=== PATIENT | male | born 1950 | race Caucasian/White ===

== ENCOUNTER 2018-09-22 15:47 | Inpatient (IN) ==
[2018-09-22] MEDS ORDERED: AFRIN NASAL SPRAY NAS ONE (16:12)
--- NOTE | 2018-09-22 16:25 | Diag Imaging Result Doc PS360 ---
EXAM: CHEST-2 VIEWS - 09/22/2018 HISTORY: hemoptysis TECHNIQUE: Chest two views COMPARISON: None. FINDINGS: Heart size is normal. There is some tortuosity of the thoracic aorta. There are COPD changes. There is consolidation at the right middle lobe. The remainder of the lungs appear to be clear of acute changes. There is no pleural effusion or pneumothorax identified. IMPRESSION: COPD. Consolidation at right middle lobe, suspicious for pneumonia. Follow-up after treatment to ensure resolution or correlation with CT thorax is recommended to exclude other underlying lesion. Electronically signed by Hamzah Hilliard 09/22/2018 4:23 PM
[2018-09-22] MEDS ORDERED: ROCEPHIN 1 GM in NS 50 ML IV ONE (16:30)
[2018-09-22 16:38] LABS: BASO# 0.04 X1000 (0.0-0.2); BASO% 0.5 % (0.0-0.8); EOS# 0.12 X1000 (0.0-0.7); EOS% 1.5 % (0.0-10.0); HEMATOCRIT 41.8 % (42.0-52.0); HEMOGLOBIN 14.6 g/dL (14.0-18.0); IMM GRAN# 0.01 X1000 (0.0-0.04); IMM GRAN% 0.1 % (0.0-0.5); LYMPH% 28.3 % (20.5-51.1); MCH 31.5 PG (27-31); MCHC 34.9 g/dL (33-37); MCV 90.1 FL (81-99); MONO# 0.78 X1000 (0.11-0.59); MPV 9.9 FL (7.4-10.4); NEUT# 4.62 X1000 (1.4-6.5); NEUT% 59.6 % (42.2-75.2); PLT 264 X1000 (130-400); RBC 4.64 XMIL (4.7-6.1); RDW 14.1 % (11.5-14.5); WBC 7.77 X1000 (4.8-10.8)
[2018-09-22 16:59] LABS: ALBUMIN 3.9 g/dL (3.5-5.0); CALCIUM 9.8 mg/dL (8.8-10.2); CREATININE 1.2 mg/dL (0.7-1.2); POTASSIUM 4.2 mmol/L (3.5-5.1); TOTAL BILIRUBIN 0.4 mg/dL (0.20-1.00); TOTAL PROTEIN 7.6 g/dL (6.3-8.3)
[2018-09-22] MEDS ORDERED: ZITHROMAX 500 MG/NS 500 MG/250 ML IVPB IV SCH (17:00)
--- NOTE | 2018-09-22 17:17 | PROVIDER DOCUMENTATION ---
This chart was entered by Lorelei Meek Scribe, acting as scribe for Duncan Sandoval CRNP. HPI-EENT General - General Chief Complaint: General Adult Stated Complaint: nose bleed Time Seen by Provider: 09/22/18 15:54 Source: patient Allergies/Adverse Reactions: Patient Allergies Allergy/AdvReac Type Severity Reaction Status Date / Time No Known Allergies Allergy Verified 09/22/18 16:58 Home Medications: Home Medication List Medication Instructions Recorded Confirmed Last Taken Type NK [No Home Medications] 09/22/18 09/22/18 Unknown History - History of Present Illness-EENT General Nature of Presenting Problem: Patient is a 68 year old male who presents to the ED via EMS with a nose bleed. Patient states he started coughing up blood this morning. Patient states the nose bleed started this morning as well. Patient denies vomiting. EENT Location: reports: nose Quality of Pain: reports: none Severity: reports: mild Onset/Duration: reports: this morning Timing: reports: still present Prearrival Treatment: Initiated no prearrival treatment Associated Symptoms: reports: other (coughing up blood) Locality of Occurance: Home Similar Symptoms Previously?: No Recently seen or treated by another doctor?: No - Nose Nose Problem Symptoms: nosebleed Review of Systems - Adult - REVIEW OF SYSTEMS - ADULT Constitutional: reports: no symptoms reported Eyes: reports: no symptoms reported Ears, Nose, Mouth & Throat: reports: epistaxis. denies: ear pain, sinus problem , throat pain Cardiovascular: reports: no symptoms reported Respiratory: reports: hemoptysis. denies: shortness of breath, wheezing Gastrointestinal: reports: no symptoms reported Genitourinary: reports: no symptoms reported Musculoskeletal: reports: no symptoms reported Integumentary: reports: no symptoms reported Neurological: reports: no symptoms reported Psychiatric: reports: no symptoms reported Endocrine: reports: no symptoms reported Hematologic/Lymphatic: reports: no symptoms reported Allergic/Immunologic: reports: no symptoms reported All Other Systems: Reviewed and Negative Past History - Adult - PAST MEDICAL HISTORY-ADULT Review of Records: reports: Nursing Assessment Review, Medications Reviewed, Social history reviewed & non-contributory. Major Childhood Illnesses: reports: denies history Cardiovascular: reports: denies history Respiratory: reports: denies history Gastrointestinal: reports: denies history Obstetrical/Gynecological: reports: denies history Genitourinary: reports: denies history Musculoskeletal: reports: denies history Neurological: reports: denies history Endocrine/Immune: reports: denies history Other Conditions: reports: denies history - PRIOR SURGERIES/PROCEDURES Surgical/Procedure History: reports: other (lung) - IMMUNIZATION STATUS Childhood Immunizations: See Nurse Assessment Flu Vaccine: See Nurse Assessment - FAMILY HISTORY Family History: reviewed, not pertinent - SOCIAL HISTORY Smoking: cigarettes, greater than 1 pack/day Provider spent 3-5 mins advising pt. on dangers of tobacco.: Discussed manners to quit use, and f/u contacts for add'l counseling. Substance Use: denies Living Situation: family Physical Exam- EENT - Physical Exam EENT Initial Vital Signs Reviewed: Yes General Appearance: alert, no apparent distress Nasal Exam: active bleeding (to bilateral nares) Throat Exam: normal mouth inspection, pharynx normal Neck: normal inspection Respiratory: chest non-tender, lungs clear, normal breath sounds Cardiovascular: normal peripheral pulses, regular rate, rhythm Integumentary: normal color, normal turgor, warm/dry Neurologic: grossly normal Psych/Mental Status: normal mood/affect, oriented x 3 Progress - PLAN OF CARE/RESULTS Progress/Plan/Lab Results: Vital Signs - 8 hr 09/22/18 15:56 09/22/18 17:06 Temperature 98 F Pulse Rate 72 64 Respiratory Rate 18 20 Blood Pressure 169/96 164/98 O2 Sat by Pulse Oximetry 97 96 Laboratory Results - last 24 hr 09/22/18 09/22/18 09/22/18 16:30 16:30 16:40 WBC 7.77 RBC 4.64 L Hgb 14.6 Hct 41.8 L MCV 90.1 MCH 31.5 H MCHC 34.9 RDW Std Deviation 14.1 Plt Count 264 MPV 9.9 Immature Gran % (Auto) 0.1 Neut % (Auto) 59.6 Lymph % (Auto) 28.3 Brewster % (Auto) 10.0 H Eos % (Auto) 1.5 Baso % (Auto) 0.5 Immature Gran # (Auto) 0.01 Neut # (Auto) 4.62 Lymph # (Auto) 2.20 Brewster # (Auto) 0.78 H Eos # (Auto) 0.12 Baso # (Auto) 0.04 Sodium 140 Potassium 4.2 Chloride 102 Carbon Dioxide 26 Anion Gap 12 BUN 11 Creatinine 1.2 Estimated GFR/1.73 m2 60 BUN/Creatinine Ratio 9 Glucose 88 Calculated Osmolality 278 Calcium 9.8 Total Bilirubin 0.40 AST 19 ALT 10 Alkaline Phosphatase 72 Total Protein 7.6 Albumin 3.9 Globulin 4.0 Albumin/Globulin Ratio 1.0 Plasma Lactate 0.8 Orders Category Date Time Status Saline Loc NOW Care 09/22/18 16:43 Active CHEST-2 VIEWS [RAD] Stat Exams 09/22/18 15:59 Completed BLOOD CULTURE [BLDCUL] Stat Lab 09/22/18 16:44 Ordered CBC WITH DIFF [HEME] Stat Lab 09/22/18 16:30 Completed COMPREHENSIVE METABOLIC PANEL [CHEM] Stat Lab 09/22/18 16:30 Completed LACTATE, PLASMA [CHEM] Stat Lab 09/22/18 16:40 Completed PROTIME WITH INR [COAG] Stat Lab 09/22/18 16:30 Received PTT [COAG] Stat Lab 09/22/18 16:30 Received SPUTUM CULTURE WITH GRAM STAIN [RM] Routine Lab 09/22/18 16:59 Ordered Azithromycin 500 mg/Ns [Zithromax 500 mg/Ns] Med 09/22/18 17:00 Active 500 mg in 250 ml IV Q24H CefTRIAXONE [Rocephin] 1 gm Med 09/22/18 16:30 Discontinued 0.9% Sodium Chloride Inj [Ns] 50 ml IV NOW Oxymetazoline Nasal Peebles [Afrin Nasal Peebles] Med 09/22/18 16:12 Discontinued 1 ml JOLENE NOW ONE Result Diagrams: 09/22/18 16:30 09/22/18 16:30 - REASSESSMENT Reassessment #1 Time Reassessed: 16:32 (discussed CXR with Dr Rivero, who advises admission. Additional orders placed) Reassessment #2 Time Reassessed: 16:36 (Reviewed CXR with pt and possible admission.) - XRAY 1 XRAY: Bilateral XRAY Study: Chest Impression: Abnormal (Heart size is normal. There is some tortuosity of the thoracic aorta. There are COPD changes. There is consolidation at the right middle lobe. The remainder of the lungs appear to be clear of acute changes. There is no pleural effusion or pneumothorax identified. IMPRESSION: COPD. Consolidation at right middle lobe, suspicious for pneumonia. Follow-up after treatment to ensure resolution or correlation with CT thorax is recommended to exclude other underlying lesion. Electronically signed by Hamzah Hilliard 09/22/2018 4:23 PM) - CONSULTS/PCP/HOSPITALIST Notification #1 *Consult/PCP/Hospitalist*: Dr Christianson, hospitalist Time Discussed: 17:16 (possible admission for PNA) Consult Disposition: Will see in ED, Admit Departure - Departure Date of Disposition Decision: 09/22/18 Time of Disposition Decision: 17:16 DIAGNOSIS: Pneumonia Qualifiers: Pneumonia type: due to unspecified organism Laterality: right Lung location: middle lobe of lung Qualified Code(s): J18.1 - Lobar pneumonia, unspecified organism Disposition: ADMITTED INPATIENT 09 Certified Medical Emergency: Emergent Condition: Fair Referrals and Follow-Ups: None,PCP [Primary Care Provider] - - Critical Care Note This patient required my direct & personal management of CC.: No Attestation - Physician/ LARA Attestation Patient care was provided by Advanced Practice Provider:: Yes Advanced Practice Provider:: Duncan Sandoval Advanced Practice Provider documentation review:: The Mid-level provider documentation, treatment plan and medical decision making was reviewed by the physician who agrees with all treatment and medical decision making by the MLP. The physician spent face to face time with patient:: No Advanced Practice Provider documentation review:: Supervising physician onsite and consulted in the evaluation and care of this patient. The physician did not have a face to face encounter with the patient. This chart was documented by the indicated scribe, (Lorelei Meek Scribe) and accurately reflects the services I performed and decisions made by me, Duncan Sandoval, RODRIGUEZ, as attested by the provider's signature.
[2018-09-22 17:19] LABS: INR 0.93; PROTIME 12.9 Seconds (11.0-16.0)
[2018-09-22 17:20] LABS: PTT 30.3 Seconds (22.3-41.8)
[2018-09-22] MEDS ORDERED: PRINIVIL PO ONE (17:59)
--- NOTE | 2018-09-22 21:44 | Diag Imaging Result Doc PS360 ---
EXAM: CT THORAX W/CONTRAST 09/22/2018 HISTORY: hemoptosis TECHNIQUE: This exam was performed using automated exposure control, adjustment of mA or kV according to patient size, and/or use of iterative reconstruction technique. COMMENT: There are atherosclerotic changes present in the thoracic aorta. There is no evidence of dissection. There is a cyst arising from the upper pole of the right kidney. There is an apparent mass arising from the lateral lobe of the left adrenal gland measuring 3.2 x 2.6 cm. This has a fairly low CT density of 17 Hounsfield units. There are no abnormal fluid collections. There is a right paratracheal node measuring 16 mm in diameter. There are patchy alveolar opacities in the right middle lobe and to a lesser extent in the right lower lobe. There is COPD with subpleural blebs bilaterally. There is a somewhat spiculated nodule present in the right upper lobe on image 34. This measures at least 12 mm in diameter. There is stranding from the nodule to the posterior lateral pleural surface. There is an additional small nodule on image 20 in the right apex measuring less than 7 mm. There are marked bullous changes in both apices. There is a pleural-based nodule in the left upper lobe on image 24 measuring less than 7 mm in diameter. There are no previous studies available for comparison. There are some spondylotic changes in the thoracic spine. No evidence of acute bony abnormality is present. IMPRESSION: Right middle and lower lobe pneumonia. Pulmonary nodules as described. Comparison with previous studies if available would be helpful in this regard. Follow-up following treatment may be desirable. Electronically signed by Brandon Armstrong 09/22/2018 9:41 PM
[2018-09-23 07:09] LABS: BASO# 0.05 X1000 (0.0-0.2); BASO% 0.6 % (0.0-0.8); EOS# 0.16 X1000 (0.0-0.7); EOS% 1.8 % (0.0-10.0); HEMATOCRIT 40.9 % (42.0-52.0); HEMOGLOBIN 13.8 g/dL (14.0-18.0); IMM GRAN# 0.02 X1000 (0.0-0.04); IMM GRAN% 0.2 % (0.0-0.5); LYMPH# 2.38 X1000 (1.2-3.4); LYMPH% 26.5 % (20.5-51.1); MCHC 33.7 g/dL (33-37); MCV 91.9 FL (81-99); MONO# 1.12 X1000 (0.11-0.59); MONO% 12.5 % (1.7-9.3); MPV 10.4 FL (7.4-10.4); NEUT# 5.25 X1000 (1.4-6.5); NEUT% 58.4 % (42.2-75.2); PLT 260 X1000 (130-400); RBC 4.45 XMIL (4.7-6.1); RDW 13.9 % (11.5-14.5); WBC 8.98 X1000 (4.8-10.8)
[2018-09-23 07:26] LABS: AGAP 12; BUN 12 mg/dL (8-22); CALCIUM 8.9 mg/dL (8.8-10.2); CHLORIDE 103 mmol/L (98-107); COSMO 277; ESTIMATED GFR > 60; GLUCOSE 89 mg/dL (70-104); POTASSIUM 4.7 mmol/L (3.5-5.1); SODIUM 139 mmol/L (136-145); TCO2 24 mmol/L (25-35)
[2018-09-23] MEDS ORDERED: ZITHROMAX PO SCH (09:00)
[2018-09-23] MEDS: PRINIVIL PO SCH (09:47)
[2018-09-23] MEDS ORDERED: VANCOMYCIN IV PER PHARMACY MISC SCH (10:15)
[2018-09-23] MEDS ORDERED: VANCOMYCIN 1,500 MG in NS 250 ML IV ONE (12:00)
[2018-09-23] MEDS: ZOSYN 3.375 GM in NS 50 ML IV SCH ×2 (13:16→18:46)
--- NOTE | 2018-09-23 13:30 | Diag Imaging Result Doc PS360 ---
CT ABD/PELVIS W/PO AND IV CON - 09/23/2018 INDICATION: adrenl mass COMPARISON: Chest CT 09/22/2018 FINDINGS: There is a left adrenal gland mass measuring 3.4 x 1.9 cm. This is of generally low-density with some heterogeneous enhancement. This is indeterminate. There are bilateral benign renal cysts. No bowel obstruction or inflammation. There is severe diverticulosis of the sigmoid colon. There is heterogeneous nodular enhancement of the anterior prostate which projects into the urinary bladder. Rectum is normal. There are moderate degenerative changes of the spine. No acute or suspicious bony lesion. IMPRESSION: 1. Suspicious prostate gland mass that projects into the urinary bladder. Further investigation recommended. 2. Indeterminate adrenal gland mass of low suspicion. This exam was performed using automated exposure control, adjustment of mA or kV according to patient size, and/or use of iterative reconstruction technique Electronically signed by Cornelio Joseph 09/23/2018 1:27 PM
[2018-09-23] MEDS ORDERED: ROCEPHIN 1 GM in NS 50 ML IV SCH (18:00)
[2018-09-24] MEDS: ZOSYN 3.375 GM in NS 50 ML IV SCH ×4 (01:24→21:20)
--- NOTE | 2018-09-24 02:34 | HISTORY AND PHYSICAL ---
CHIEF COMPLAINT: Nosebleed. HISTORY OF PRESENT ILLNESS: Patient is a 68-year-old male who presented to the emergency department initially with a nosebleed. Stated he was coughing up blood. States this has happened in the past but not this severe. Denies any fevers or chills. Notes that he has had a cough for the past couple weeks, nonproductive. States that he has a history of high blood pressure but he has not been to a physician in quite some time. ALLERGIES: No known drug allergies. MEDICATIONS: None. PAST MEDICAL HISTORY: Hypertension. SURGERY: Patient notes that he has had lung surgery in the past. REVIEW OF SYSTEMS: As noted above. Patient essentially denies any cough or congestion prior to a few weeks ago. States he has had cough off and on since then. He has had nosebleeds off and on. Denies any bleeding or bruising otherwise. Denies any shortness of breath, wheezing, chest pain, palpitation. Denies fevers, chills. Denies headaches, blurred vision. Denies focalized numbness, tingling or weakness. Denies dysuria, urinary frequency, urgency, constipation, melena, hematochezia. FAMILY HISTORY: Noncontributory. SOCIAL HISTORY: Patient has an extensive history of smoking greater than a pack a day. Denies any alcohol use. Denies other substance use. FAMILY HISTORY: Noncontributory. PHYSICAL EXAMINATION: VITAL SIGNS: Temperature 98 degrees, pulse 72, respiratory 18, BP 169/96, saturation 97% on room air. GENERAL: Patient is awake, alert. Currently, he is in no respiratory distress. He is pleasant to talk with. He is sitting in the bed. HEENT: Normocephalic. NECK: Supple. CARDIOVASCULAR: Regular rate. CHEST: Positive crackles in the bases. No rhonchi. No wheezing. Minimally labored. ABDOMEN: Soft, nondistended. EXTREMITIES: Moves all extremities. LABS: WBC 7, hemoglobin and hematocrit 14 and 41. CMP normal. Plasma lactate 0.7. Chest x-ray is suspicious for right middle lobe pneumonia. ASSESSMENT: 1. Right lower lobe pneumonia. 2. Epistaxis. The patient has not had any bleeding while he has been in the ER thus far. 3. Hypertension. 4. Chronic tobacco abuse. 5. Medical noncompliance. PLAN: We will admit patient to the hospital, IV fluids, antibiotics, breathing treatments. Discussed with patient the importance of stopping smoking. ADDENDUM: Prior to patient leaving the ER, he apparently after I had seen had an episode of hemoptysis. This does not appear, according to staff, to actually be epistaxis. He had significant amount of bleeding. Thankfully his hemoglobin and hematocrit did not drop. The ER doctor attempted to transfer him to [facility], [facility] and [facility] in that order. Unfortunately, all of these places were on diversion. At this point, we will transfer him to [facility]. Thankfully, his hemoglobin and hematocrit are stable and we will follow. cc: Chalino Leonard MD
[2018-09-24 07:15] LABS: HEMATOCRIT 37.8 % (42.0-52.0); HEMOGLOBIN 12.6 g/dL (14.0-18.0); MCH 31.1 PG (27-31); MCHC 33.3 g/dL (33-37); MCV 93.3 FL (81-99); MPV 10.6 FL (7.4-10.4); RBC 4.05 XMIL (4.7-6.1); RDW 14.1 % (11.5-14.5); WBC 8.26 X1000 (4.8-10.8)
[2018-09-24 07:30] LABS: CALCIUM 8.8 mg/dL (8.8-10.2); CREATININE 1.3 mg/dL (0.7-1.2); POTASSIUM 4.7 mmol/L (3.5-5.1)
[2018-09-24] MEDS: PRINIVIL PO SCH (09:29)
[2018-09-24] MEDS: PROTONIX IV SCH (11:55)
[2018-09-24] MEDS: NICODERM PATCH TD SCH (11:55)
[2018-09-24] MEDS: ZYVOX 600 MG/D5W 600 MG/300 ML IVPB IV SCH (11:56)
[2018-09-24] MEDS ORDERED: VANCOMYCIN 1,300 MG in NS 250 ML IV SCH (12:00)
--- NOTE | 2018-09-24 15:44 | PROGRESS NOTE ---
DATE: 09/24/2018 SUBJECTIVE: This patient is feeling better today. She is still coughing up some blood, but at this time it was dark and a small amount, maybe teaspoon, and that happened 2 hours ago. He did not have any epistaxis during the night. He has been placed on antibiotics. I will stop the vancomycin because of his mild acute kidney injury. I will start him on Zyvox. Continue with Zosyn. Since his blood pressure has been borderline low in the 90, I will stop the lisinopril as well and I will monitor. I will use a nicotine patch and pantoprazole as well. OBJECTIVE: Vital Signs: Temperature 97.7 degrees, pulse 54, respiratory rate 18, blood pressure 102/60, oxygen saturation 94% on room air. HEENT: Head normocephalic. No trauma. PERRLA. Neck: Supple. No JVD. No masses. Central trachea. Chest: Decreased breath sounds globally with prolonged expiratory phase. Right mid thoracic area and lower thoracic area rhonchi. No wheezing. Abdomen: Soft, nontender, nondistended. No hepatosplenomegaly. Extremities: No edema. No clubbing. No cyanosis. Neurological examination: The patient is alert and oriented x3. No focal deficits. LABORATORY: WBC 8.2, hemoglobin 12.6, hematocrit 37.8, platelets 218. Sodium 141, potassium 4.7, chloride 106, bicarbonate 24. BUN 19, creatinine 1.3, glucose 89, calcium 8.8. ASSESSMENT AND PLAN: 1. Right middle and lower lobe pneumonia, continue with antibiotics. I will stop the vancomycin due to his mild acute kidney injury. I am not quite sure if this is his baseline, though; I do not have previous records. I will avoid nephrotoxic medications, I will stop also the lisinopril. 2. Epistaxis. No epistaxis during the night. A couple hours ago, he started coughing and some phlegm came up with some dark blood. 3. Hypertension. Actually this patient is borderline hypotension. I will stop the lisinopril and I will monitor. 4. Chronic tobacco use and abuse. This patient has been highly advised against tobacco use. I will continue with daily cessation education. I will put this patient on a nicotine patch. 5. Medical noncompliance. We discussed about taking the medications as prescribed. 6. Pulmonary nodules and mass arising from the lateral lobe of the left adrenal gland measuring 3.2 x 2.6 cm, aware. I believe Oncology Department has been consulted. We will wait for recommendations. 7. Suspicious prostate gland mass that projects into the urinary bladder. I discussed this with the patient. Likely, he will need to see a urologist as an outpatient. cc: Giuliano Rojas MD
--- NOTE | 2018-09-24 17:43 | Diag Imaging Result Doc PS360 ---
CHEST-2 VIEWS - 09/24/2018 INDICATION: hemoptysis COMPARISON: 09/22/2018 FINDINGS: Stable hyperexpanded lungs compatible with COPD. Stable significant right middle lobe infiltrate or atelectasis. No new infiltrates. No pneumothorax or significant pleural effusion. Heart size is top normal. IMPRESSION: No change from prior. Electronically signed by Cornelio Joseph 09/24/2018 5:41 PM
[2018-09-24] MEDS ORDERED: VANCOMYCIN 1 GM/NS 1 GM/250 ML IVPB IV SCH (20:00)
[2018-09-24 20:36] LABS: URINE SOURCE CLEAN CATCH
[2018-09-24 20:42] LABS: BILIRUBIN URINE NEGATIVE (NEGATIVE); BLOOD URINE NEGATIVE (NEGATIVE); COLOR YELLOW; GLUCOSE URINE NEGATIVE (NEGATIVE); KETONE URINE NEGATIVE (NEGATIVE); LEUKOCYTES URINE NEGATIVE (NEGATIVE); NITRITE URINE NEGATIVE (NEGATIVE); PROTEIN URINE NEGATIVE (NEGATIVE); SP GRAVITY URINE 1.002; TURBIDITY URINE CLEAR (CLEAR); UROBILINOGEN URINE NORMAL (NORMAL)
[2018-09-24 20:44] LABS: UR EPITHELIAL CELLS <10 /HPF (<10); URINE BACTERIA NEGATIVE /HPF; URINE RBC <10 /HPF (<10); URINE WBC <10 /HPF (<10)
[2018-09-25] MEDS: ZYVOX 600 MG/D5W 600 MG/300 ML IVPB IV SCH ×3 (00:02→22:52)
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
[2018-09-25] MEDS: ZOSYN 3.375 GM in NS 50 ML IV SCH ×4 (03:04→20:29)
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
[2018-09-25 07:17] LABS: HEMATOCRIT 37.7 % (42.0-52.0); HEMOGLOBIN 12.7 g/dL (14.0-18.0); MCH 31.4 PG (27-31); MCHC 33.7 g/dL (33-37); MCV 93.1 FL (81-99); MPV 10.4 FL (7.4-10.4); RBC 4.05 XMIL (4.7-6.1); RDW 13.9 % (11.5-14.5); WBC 9.32 X1000 (4.8-10.8)
[2018-09-25 07:45] LABS: CALCIUM 8.1 mg/dL (8.8-10.2); CREATININE 1.2 mg/dL (0.7-1.2); POTASSIUM 4.7 mmol/L (3.5-5.1)
[2018-09-25] MEDS ORDERED: TYLENOL PO PRN (07:52)
[2018-09-25] MEDS: NICODERM PATCH TD SCH (08:35)
[2018-09-25] MEDS ORDERED: PEPTO-BISMOL CHEW TAB PO PRN (10:41)
--- NOTE | 2018-09-25 11:27 | PROGRESS NOTE ---
DATE: 09/25/2018 SUBJECTIVE: No acute events overnight. This patient is tolerating food. Blood pressure has been borderline low sometimes. Oxygen saturation has been good on room air. OBJECTIVE: Vital Signs: Temperature 98.4 degrees, pulse 88, respiratory rate 18, blood pressure 95/65, oxygen saturation 97% on room air. HEENT: Head normocephalic. No trauma. PERRLA. Neck: Supple. No JVD. No masses. Central trachea. Chest: Decreased breath sounds globally with prolonged expiratory phase, rhonchi at the right base. No wheezing. Abdomen: Soft, nontender, nondistended. No hepatosplenomegaly. Extremities: No edema. No clubbing. No cyanosis. Decreased muscle mass. Neurological: The patient is alert and oriented x3. No focal deficits. LABORATORY: WBC 9.3, hemoglobin 12.7, hematocrit 37.7, platelets 233,000. Sodium 139, potassium 4.7, chloride 103, bicarbonate 22, BUN 16, creatinine 1.2, glucose 100, calcium 8.1, magnesium 2. ASSESSMENT AND PLAN: 1. Right middle and lower lobe pneumonia. Continue with antibiotics. WBC is normal. 2. Epistaxis. This is getting better. It looks like he is going to get a bronchoscopy done tomorrow. We will follow Pulmonary recommendations. 3. Hypertension. Actually, the blood pressure has been borderline low. I will stop the lisinopril completely and I will monitor. 4. Chronic tobacco use and abuse. This patient has been highly advised against tobacco use. I will continue with daily cessation education. I will continue with the nicotine patch. 5. Medical noncompliance. We discussed about taking his medications as prescribed. 6. Pulmonary nodules and mass arising from the lateral lobe of the left adrenal gland measuring 3.2 x 2.6 cm, aware. Oncology Department has been consulted. We will wait for their recommendations. 7. Suspicious prostate gland mass that projects into the urinary bladder. I discussed this with the patient, and I have requested an evaluation by Urology Department. cc: Giuliano Rojas MD
[2018-09-25] MEDS: PROTONIX IV SCH (11:33)
--- NOTE | 2018-09-25 18:10 | PULMONOLOGY PROGRESS NOTE ---
DATE: 09/25/2018 SUBJECTIVE: Patient is awake, alert, and conversant. He reports Dr. Darnell evaluated him earlier and will consider cystoscopy on Wednesday or Wednesday. The patient reports he has a cough with brown sputum. He has not seen any active/bright red blood. OBJECTIVE: Vital Signs: The patient has been afebrile for the last 24 hours. Blood pressure 112/73, heart rate 75, respiratory rate 22, oxygen saturation 99% on room air. HEENT: Pupils are equal and reactive. Oropharynx is clear. Neck: Is supple. Chest: Reveals crackles right anterior base. Cardiac: S1-S2. Abdomen: Soft without hepatosplenomegaly. Extremities: Without edema. LABORATORIES: White blood count 9.32, hemoglobin 12.7, platelet count 233,000. Sodium 139, potassium 4.7, chloride 103, bicarbonate 22, BUN 19, creatinine 1.2. IMPRESSION: 68-year-old with massive hemoptysis, nonspecific mediastinal adenopathy, nonspecific pulmonary nodules, adrenal gland which is of low suspicion according to the radiologist, and a prostate mass extending into the bladder. RECOMMENDATIONS: 1. Proceed with bronchoscopy tomorrow morning. 2. Anticipate need for an outpatient PET scan. 3. Cystoscopy planned as outlined above. cc: Ed Machado MD
[2018-09-26] MEDS: ZOSYN 3.375 GM in NS 50 ML IV SCH ×4 (03:15→22:07)
[2018-09-26 07:23] LABS: CALCIUM 8.8 mg/dL (8.8-10.2); CREATININE 1.4 mg/dL (0.7-1.2); POTASSIUM 4.8 mmol/L (3.5-5.1)
[2018-09-26 07:26] LABS: HEMATOCRIT 36.7 % (42.0-52.0); HEMOGLOBIN 12.2 g/dL (14.0-18.0); MCH 31.3 PG (27-31); MCHC 33.2 g/dL (33-37); MCV 94.1 FL (81-99); RBC 3.9 XMIL (4.7-6.1); RDW 13.8 % (11.5-14.5); WBC 7.65 X1000 (4.8-10.8)
[2018-09-26] MEDS ORDERED: XYLOCAINE 2% VISCOUS ONE (08:13)
[2018-09-26] MEDS ORDERED: EPINEPHRINE ONE (08:13)
[2018-09-26] MEDS ORDERED: XYLOCAINE 1% ONE (08:14)
[2018-09-26] MEDS ORDERED: SODIUM CHLORIDE 0.9% 20 ML ONE (08:14)
[2018-09-26] MEDS ORDERED: XYLOCAINE 2% ONE (08:14)
[2018-09-26] MEDS ORDERED: DIPRIVAN 1% ONE (08:20)
[2018-09-26] MEDS ORDERED: XYLOCAINE-MPF 2% ONE (08:20)
[2018-09-26] MEDS ORDERED: FENTANYL ONE (08:20)
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
[2018-09-26] MEDS: NICODERM PATCH TD SCH (09:43)
[2018-09-26] MEDS: D5 1/2 NS 1,000 ML IV SCH (09:47)
--- NOTE | 2018-09-26 10:03 | OPERATIVE NOTE ---
PROCEDURE DATE: PROCEDURE PERFORMED: Bronchoscopy. CLINICAL INDICATION: Hemoptysis. DESCRIPTION OF OPERATION: The patient was identified in the operating room. All questions were answered prior to the initiation of the procedure. A time-out was performed, and all were in agreement with the procedure; and the patient's name, and procedure, and reason for procedure were confirmed. Topical anesthesia was achieved with nebulized lidocaine followed by viscous lidocaine in the left nostril with 2% lidocaine instilled above the vocal cords and below the vocal cords during the procedure. Monitored anesthesia care was provided by the anesthesia services group. When topical anesthesia and sedation were achieved, bronchoscope was advanced through the left nostril to the vocal cords. The vocal cords were visualized and had normal movement. There was a small sliver of blood clot noted in the bronchial secretions. The bronchoscope was advanced into the trachea. There was very mild saber sheathing of his trachea, but no significant collapse on inhalation or exhalation. Airways to the left mainstem, left upper lobe lingula, and left lower lobe were patent without lesions. Airways to the right upper lobe revealed 4 subsegments, which were all patent and without lesions. There was a clot, which could be seen obstructing the right middle lobe. Video image was obtained. Airways to the right lower lobe were patent without lesions. A washing was performed from the trachea and again, from the right middle lobe. With washing, the clot from the right middle lobe was removed. There was minor bleeding associated with removal of the clot, and topical epinephrine was instilled. The washing continued until the segments of the right middle lobe were identified, and the subsegments were also identified. No lesions were identified to the visualization of the bronchoscope. No active bleeding could be seen at the completion of the procedure. Although it is clear that the bleeding did originate in the right middle lobe, which segment bleeding came from could not be identified. IMPRESSION: Hemoptysis with evidence of recent bleeding from the right middle lobe due to a diffuse clot in the airway to both segments of the right middle lobe. Washing clear these segments. No bleeding or tumor site was identified. If the patient were to have massive hemoptysis, it would most likely be coming from the right middle lobe. RECOMMENDATIONS: Discontinue tobacco use. Discontinue all nonsteroidal anti-inflammatory agents including aspirin, Aleve, Motrin, Goody Powders. The patient also uses Pepto-Bismol which should be eliminated because it is a salicylate product. cc: Ed Machado MD
[2018-09-26] MEDS: PROTONIX IV SCH (11:10)
[2018-09-26] MEDS: ZYVOX 600 MG/D5W 600 MG/300 ML IVPB IV SCH (11:10)
--- NOTE | 2018-09-26 14:16 | PROGRESS NOTE ---
DATE: 09/26/2018 SUBJECTIVE: No acute events overnight. He is status post bronchoscopy today that showed a diffuse clot in the airway of both segments of the right middle lobe. No evidence of bleeding or tumour were identified. He has been recommended to discontinue tobacco use, and also NSAIDs, including aspirin, Aleve, Motrin Goody's Powder, and even Pepto-Bismol. OBJECTIVE: Vital Signs: Temperature 98.1 degrees, pulse 63, respiratory rate 14, blood pressure 126/72, oxygen saturation 100% on room air. HEENT: Head normocephalic. No trauma. PERRLA. Neck: Supple. No JVD. No masses. Central trachea. Chest: Decreased breath sounds globally with prolonged expiratory phase. No wheezing. Abdomen: Soft, nontender, nondistended. No hepatosplenomegaly. Extremities: No edema. No clubbing. No cyanosis. Decreased muscle mass. Neurological: The patient is alert and oriented x3. No focal deficits. DIAGNOSTIC STUDIES: WBC 7.6, hemoglobin 12.2, hematocrit 36.7, platelets 237,000. Sodium 139, potassium 4.8, chloride 105, bicarbonate 23, BUN 15, creatinine 1.4, glucose 95, calcium 8.8. ASSESSMENT AND PLAN: 1. Right middle and lower lobe pneumonia. Continue with antibiotics. WBC is normal. 2. Epistaxis, resolved. Status post bronchoscopy today that showed a diffuse clot in the airway of both segments of the right middle lobe, but no evidence of tumour or bleeding. He has been recommended to stop the NSAIDs, aspirin, and even Pepto-Bismol. 3. Hypertension. Actually the blood pressure has been borderline low. I will continue with the same management. I have stopped all the blood pressure medication. 4. Chronic tobacco use and abuse. This patient has been highly advised against tobacco use. I will continue with daily cessation education. Continue with nicotine patch. 5. Medical noncompliance. Aware. 6. Pulmonary nodules and mass arising from the lateral lobe of the adrenal gland measuring 3.2 x 2.6. Aware. Oncology department has been consulted. We will wait for recommendations. 7. Suspicious prostate gland mass that projects into the urinary bladder. The patient has been evaluated by Urology Department, and the plan is to set up this patient for cystoscopy and bilateral retrograde pyelograms, hopefully on 09/28/2018. cc: Giuliano Rojas MD
--- NOTE | 2018-09-26 17:35 | PROGRESS NOTE ---
DATE: 09/26/2018 SUBJECTIVE: Mr. Samson underwent bronchoscopy this morning by Dr. Machado. I had originally planned to take him for cystoscopy, bilateral retrograde pyelograms, and possible transurethral resection of bladder tumor on 09/28/2018, but given the availability of the operating room schedule I attempted to take him this afternoon. However, unfortunately, he was fed lunch and hence his case was canceled. He currently denies pain. He reports he is voiding without difficulties. OBJECTIVE: Vital Signs: Temperature 98.1 degrees, pulse 64, blood pressure 101/58. General: No acute distress. Abdomen: Nontender, nondistended. Genitourinary: Bladder nontender by palpation. PERTINENT LABORATORY DATA: Hematocrit is 37 today, creatinine is 1.4. ASSESSMENT AND PLAN: 68-year-old male, who was admitted with hemoptysis but also has an either very pronounced median lobe or bladder mass by CT read as well as an adrenal mass. The patient's was present at bedside. I revisited the workup with the patient and her. We agreed for him to undergo that on 09/28/2017. PLAN: 1. No urologic intervention needed today or tomorrow. 2. We will plan for cystoscopy with bilateral retrograde pyelograms, and possible transurethral resection of bladder tumor on 09/28/2017 cc: Cheo Darnell MD
[2018-09-27] MEDS: ZYVOX 600 MG/D5W 600 MG/300 ML IVPB IV SCH ×2 (00:04→11:30)
[2018-09-27] MEDS: ZOSYN 3.375 GM in NS 50 ML IV SCH ×4 (04:27→21:00)
[2018-09-27] MEDS: D5 1/2 NS 1,000 ML IV SCH ×3 (06:57→11:25)
[2018-09-27 08:28] LABS: CALCIUM 8.2 mg/dL (8.8-10.2); CREATININE 1.2 mg/dL (0.7-1.2); POTASSIUM 4.5 mmol/L (3.5-5.1)
[2018-09-27] MEDS: NICODERM PATCH TD SCH (09:07)
[2018-09-27] MEDS: PROTONIX IV SCH (11:30)
[2018-09-27] MEDS: SODIUM CHLORIDE 0.9% INJ SCH (11:30)
--- NOTE | 2018-09-27 12:26 | PROGRESS NOTE ---
DATE: 09/27/2018 SUBJECTIVE: The patient reports feeling fine. Denies any shortness of breath. Denies any pain upon urination. No fevers or chills reported. OBJECTIVE: Vital Signs: Temperature 98.3 degrees, heart rate 63, respiratory rate 22, blood pressure 109/63, O2 saturation 100% on room air. General: This is a chronically ill-looking and malnourished, 68-year-old male lying in bed, in no acute distress. HEENT: Head is normocephalic and atraumatic. Mucous membranes dry. Neck: No JVD noted. No carotid bruits. No lymphadenopathy. Cardiovascular: S1, S2 heard. No murmurs, gallops, or rubs. Regular rate and rhythm. Respiratory: Decreased breath sounds globally with prolonged respiratory phase. Minimal wheezing in both pulmonary bases. The patient is not using any accessory muscles or having work of breathing. Abdomen: Soft, nontender to palpation, nondistended. Bowel sounds present. No organomegaly. Extremities: No clubbing, cyanosis, or edema. Muscle wasting noted. Neurological: The patient is alert and oriented x3. Moves 4 extremities. LABORATORY DATA: White cell count 7.65, hemoglobin 12.2, hematocrit 36.7, platelets 237,000. BMP unremarkable. ASSESSMENT AND PLAN: 1. Right middle and lower lobe pneumonia. The patient is on Zosyn day 4 and Zyvox day 3 of treatment. White cell count is normal. The patient is not requiring any oxygen supplementation. Will continue with the same management. 2. Pulmonary nodules and mass arising from the lateral lobe, from the adrenal gland. The patient has been evaluated by Pulmonary. Bronchoscopy has been done with no tumor found. There was a clot in the right middle lobe. At this point, we will continue monitoring this patient closely. Nonsteroidal anti-inflammatory drugs, aspirin, and Pepto-Bismol have been advised not to be taken by Pulmonary. 3. Hypertension. Blood pressure is under control, actually not requiring any medications to control blood pressure. Will continue with the same management. 4. Chronic tobacco use and abuse. The patient has being again advised to discontinue smoking. The patient is receiving nicotine patch. 5. Suspicious prostate gland mass/bladder tumor. The patient has been scheduled for Urology, Dr. Darnell, to do cystoscopy and bilateral retrograde pyelograms. The patient will be placed nothing by mouth after midnight tonight. cc: Cedric Donaldson MD
--- NOTE | 2018-09-27 18:23 | PROGRESS NOTE ---
DATE: 09/27/2018 SUBJECTIVE: Mr. Samson reports a decent night overnight. He denies changes in his urinary symptoms. He denies gross hematuria. OBJECTIVE: Vital Signs: T 98.3 degrees, P 63, BP 109/63. General: No acute distress. Abdomen: Nontender, nondistended. Back: No CVA tenderness. Bladder is nontender to palpation. PERTINENT LABS: Creatinine today is 1.2. ASSESSMENT AND PLAN: This is a 68-year-old male with a possible bladder mass as well as an adrenal mass. He was educated on the risks of the procedure including, but not limited to, bleeding, infection, injury to the bladder, injury to adjacent structures, inability to remove the entire lesion, and need for additional interventions explained. He voiced understanding and wants to proceed with cystoscopy, bilateral retrograde pyelograms, possible transurethral resection of the bladder tumor tomorrow. PLAN: 1. N.P.O. after midnight. 2. To the operating room tomorrow morning for cystoscopy, bilateral retrograde pyelograms, possible transurethral resection of the bladder tumor. cc: Cheo Darnell MD
--- NOTE | 2018-09-27 23:01 | PULMONOLOGY PROGRESS NOTE ---
DATE: 09/27/2018 SUBJECTIVE: The patient is awake, alert, and conversant. He denies hemoptysis. OBJECTIVE: Vital Signs: The patient is afebrile. Blood pressure 135/78, heart rate 70, respiration rate 20, oxygen saturation 100% on room air. HEENT: Pupils are equal and reactive. Oropharynx appears clear. Neck: Supple. Chest: Reveals good air entry bilaterally, without wheezing or rhonchi. Cardiac: S1-S2. Abdomen: Soft, and without hepatosplenomegaly. Extremities: Without edema. IMPRESSION: A 68-year-old with: 1. COPD. 2. Massive hemoptysis. 3. Nonspecific pulmonary nodules. 4. Nonspecific mediastinal adenopathy. 5. Enlarged adrenal gland, which is of low suspicion per radiologist. 6. Possible prostate mass, extending into bladder. The patient underwent bronchoscopy, which defines site of bleeding as the right middle lobe. RECOMMENDATIONS: 1. Discontinue tobacco use. 2. Discontinue aspirin use. 3. Anticipate cystoscopy 09/28/2018. 4. Recommend outpatient PET scan with follow up in my office and with Oncology. cc: Ed Machado MD
[2018-09-28] MEDS: ZYVOX 600 MG/D5W 600 MG/300 ML IVPB IV SCH ×2 (00:15→10:25)
[2018-09-28] MEDS: ZOSYN 3.375 GM in NS 50 ML IV SCH ×4 (02:30→20:44)
[2018-09-28] MEDS: D5 1/2 NS 1,000 ML IV SCH ×3 (06:00→20:43)
--- NOTE | 2018-09-28 07:40 | Diag Imaging Result Doc PS360 ---
CHEST-2 VIEWS - 09/28/2018 INDICATION: abnormal exam COMPARISON: 09/24/2018 FINDINGS: Stable advanced COPD. There has been near-complete resolution of the right middle lobe airspace opacity. No new infiltrates. No pneumothorax or pleural effusion. IMPRESSION: Significant improvement in the right middle lobe infiltrate. Electronically signed by Cornelio Joseph 09/28/2018 7:37 AM
[2018-09-28 07:45] LABS: BASO# 0.06 X1000 (0.0-0.2); BASO% 0.8 % (0.0-0.8); EOS% 3.8 % (0.0-10.0); HEMATOCRIT 37.7 % (42.0-52.0); HEMOGLOBIN 12.6 g/dL (14.0-18.0); IMM GRAN# 0.02 X1000 (0.0-0.04); IMM GRAN% 0.3 % (0.0-0.5); LYMPH# 1.85 X1000 (1.2-3.4); LYMPH% 23.2 % (20.5-51.1); MCH 31.2 PG (27-31); MCHC 33.4 g/dL (33-37); MCV 93.3 FL (81-99); MONO% 15.1 % (1.7-9.3); NEUT# 4.54 X1000 (1.4-6.5); NEUT% 56.8 % (42.2-75.2); PLT 281 X1000 (130-400); RBC 4.04 XMIL (4.7-6.1); RDW 13.8 % (11.5-14.5); WBC 7.97 X1000 (4.8-10.8)
[2018-09-28 08:14] LABS: CALCIUM 8.7 mg/dL (8.8-10.2); CREATININE 1.3 mg/dL (0.7-1.2); POTASSIUM 4.1 mmol/L (3.5-5.1)
[2018-09-28] MEDS: NICODERM PATCH TD SCH (08:55)
--- NOTE | 2018-09-28 10:21 | PROGRESS NOTE ---
DATE: 09/28/2018 SUBJECTIVE: Patient reports breathing better. Not requiring any oxygen supplementation. No pain upon urination. OBJECTIVE: Vital Signs: Temperature 97.8, heart rate 69, respiratory rate 16, blood pressure 138/77, O2 saturation 100% on room air. General examination: This is a chronically ill looking and cachectic, 68-year-old, male, lying in bed, in no acute distress. HEENT: Head is normocephalic, atraumatic. Mucous membranes dry. Neck: No JVD noted. No carotid bruits. No lymphadenopathy. No thyromegaly. Cardiovascular: S1, S2 heard. No murmurs, gallops, or rubs. Regular rate and rhythm. Respiratory: Decreased breath sounds globally with prolonged respiratory phase. Minimal wheezing is still present in both pulmonary bases. Definitely better in comparing with yesterday. Patient is not using any accessory muscles or having work of breathing. Abdomen: Soft, nontender to palpation. Nondistended. Bowel sounds present. No organomegaly. Extremities: No clubbing, cyanosis, or edema. Peripheral pulses present in both legs. Muscle wasting noted. Neurological: Patient alert and oriented x3. Moves 4 extremities. LABORATORY DATA: White cell count 7.97, hemoglobin 12.6, hematocrit 37.7, platelets 281. BMP remarkable for creatinine 1.3. ASSESSMENT AND PLAN: 1. Right middle and lower lobe pneumonia. The patient is on Zyvox day #4 and Zosyn day #5. Clinically, this patient is doing good. Not requiring any oxygen supplementation. The x-ray from today showed actually significant improvement in the right middle lobe infiltrates. Pulmonary is following this patient. We will follow recommendations. 2. Pulmonary nodule with mass arising from the lateral lobe and from the adrenal gland. Pulmonary has been consulted. Bronchoscopy did not show anything more at this point, we will follow recommendations from them. 3. Hypertension. Blood pressure is under control. Not requiring any medications to control blood pressure. We will continue with same medication. 4. Suspicious prostate gland mass/bacteremia. Patient is scheduled for today to have cystoscopy and bilateral retrograde pyelograms. Dr. Darnell is on board. We will follow recommendations. 5. Chronic tobacco use and abuse. Patient again advised to stop smoking tobacco. DISPOSITION: Depending upon results of procedure today. cc: MD ANALI Sim
[2018-09-28] MEDS ORDERED: ROBINUL ONE (12:23)
[2018-09-28] MEDS ORDERED: XYLOCAINE-MPF 2% ONE (12:23)
[2018-09-28] MEDS ORDERED: DIPRIVAN 1% ONE (12:24)
[2018-09-28] MEDS ORDERED: FENTANYL ONE (12:24)
[2018-09-28] MEDS: PROTONIX IV SCH (14:04)
[2018-09-28] MEDS ORDERED: ZOFRAN ONE (14:20)
[2018-09-28] MEDS ORDERED: DECADRON ONE (14:20)
[2018-09-28] MEDS ORDERED: SODIUM CHLORIDE 0.9% 10 ML ONE (14:30)
[2018-09-28] MEDS ORDERED: EPHEDRINE ONE (14:30)
[2018-09-28] MEDS: NORCO-7.5 ONE (15:03)
[2018-09-28] MEDS ORDERED: PYRIDIUM PO PRN (15:31)
[2018-09-28] MEDS ORDERED: NORCO-7.5 PO PRN (15:32)
--- NOTE | 2018-09-28 17:25 | Diag Imaging Result Doc PS360 ---
RETROGRADES 2 OR 3 FILMS - 09/28/2018 INDICATION: POSSIBLE BLADDER TUMOR, HEMATURIA TECHNIQUE: Bilateral ureterograms. The exam was performed by the patient's urologist. Total fluoroscopy time was eight seconds. Eight images were obtained. COMPARISON: CT from 09/23/2018 FINDINGS: The ureters and renal collecting systems are normal bilaterally. No stricture or mass. IMPRESSION: No acute disease. Electronically signed by Cornelio Joseph 09/28/2018 5:23 PM
[2018-09-29] MEDS: ZYVOX 600 MG/D5W 600 MG/300 ML IVPB IV SCH ×2 (00:17→11:42)
--- NOTE | 2018-09-29 01:27 | PULMONOLOGY PROGRESS NOTE ---
DATE: 09/28/2018 SUBJECTIVE: The patient is awake, alert, and conversant. He reports his breathing has returned to baseline. He is scheduled for a cystoscopy earlier today. OBJECTIVE: Vital Signs: The patient has been afebrile for the last 24 hours. Blood pressure 142/92, heart rate 91, respiratory rate 16, oxygen saturation 100% on room air. HEENT: Pupils are equal and reactive. Oropharynx is clear. Neck: Supple. Chest: Reveals prolonged expiratory phase, without wheezing or rhonchi. Cardiac: S1-S2. Abdomen: Soft, and without hepatosplenomegaly. Extremities: Without edema. LABORATORIES: White blood count 7.97, hemoglobin 12.6, platelet count 281,000. IMPRESSION: A 68-year-old with: 1. Chronic obstructive pulmonary disease. 2. Massive hemoptysis, with blood originating from the right middle lobe. 3. Nonspecific pulmonary nodules. 4. Nonspecific mediastinal adenopathy. 5. Enlarged adrenal gland, of low suspicion, per Radiology. 6. Possible prostate mass, extended into bladder. Cystoscopy is to be performed later today. RECOMMENDATIONS: 1. Discontinue tobacco use. 2. Discontinue aspirin use. 3. Await cystoscopy, with report of the bladder. 4. Recommend outpatient PET scan. The patient can follow up in my clinic after that has been performed. cc: Ed Machado MD
[2018-09-29] MEDS: ZOSYN 3.375 GM in NS 50 ML IV SCH ×3 (03:00→14:15)
[2018-09-29] MEDS: D5 1/2 NS 1,000 ML IV SCH (03:47)
[2018-09-29 07:37] LABS: BASO# 0.03 X1000 (0.0-0.2); BASO% 0.5 % (0.0-0.8); EOS% 1.5 % (0.0-10.0); HEMATOCRIT 37.7 % (42.0-52.0); HEMOGLOBIN 12.6 g/dL (14.0-18.0); LYMPH# 1.83 X1000 (1.2-3.4); LYMPH% 27.9 % (20.5-51.1); MCHC 33.4 g/dL (33-37); MCV 92.9 FL (81-99); MONO% 12.2 % (1.7-9.3); MPV 9.7 FL (7.4-10.4); NEUT# 3.81 X1000 (1.4-6.5); NEUT% 57.9 % (42.2-75.2); PLT 313 X1000 (130-400); RBC 4.06 XMIL (4.7-6.1); RDW 13.6 % (11.5-14.5); WBC 6.57 X1000 (4.8-10.8)
[2018-09-29 08:00] LABS: CALCIUM 8.9 mg/dL (8.8-10.2); CREATININE 1.3 mg/dL (0.7-1.2); POTASSIUM 4.1 mmol/L (3.5-5.1)
--- NOTE | 2018-09-29 08:10 | PROGRESS NOTE ---
DATE: 09/28/2018 SUBJECTIVE: Mr. Samson had no acute events overnight. He states he is ready to proceed with his surgery. PHYSICAL EXAMINATION: Vital Signs: T 97.8, P 69, BP 138/77. General: No acute distress. Abdomen: Nontender and nondistended. : Bladder is nontender to palpation. PERTINENT LABORATORY DATA: White cell count is 8000, hematocrit is 38. Creatinine is 1.3. ASSESSMENT: A 68-year-old male with a possible bladder lesion and reported history of hematuria in the past, who presents for evaluation. PLAN: To the operating room today for a cystoscopy, bilateral retrograde pyelograms, and possible transurethral resection of a bladder tumor. cc: Cheo Darnell MD
[2018-09-29] MEDS: NICODERM PATCH TD SCH (08:11)
[2018-09-29] MEDS: NORCO-7.5 ONE (08:20)
--- NOTE | 2018-09-29 08:39 | OPERATIVE NOTE ---
PROCEDURE DATE: 09/29/2018 SURGEON: Cheo Darnell MD PREOPERATIVE DIAGNOSIS: Possible bladder mass, history of hematuria. PROCEDURE: Cystoscopy, bilateral retrograde pyelograms. INDICATIONS: This is a 68-year-old male who was admitted with hemoptysis and pneumonia. In the process of imaging he was found to have a questionable mass at the base of the bladder. At first, he reported that he did not have any hematuria, but then stated that he has had hematuria in the past. He presents for evaluation with cystoscopy, retrograde pyelograms, and possible excision of bladder tumor. FINDINGS: No evidence of bladder tumor. Suspicious mass is very pronounced median lobe which has grown into the bladder. Unremarkable bilateral retrograde pyelograms. PROCEDURE IN DETAIL: After obtaining informed consent, the patient was brought to the operating room. Perioperative antibiotics and laryngeal mask anesthesia were administered. He was placed in lithotomy position, prepped and draped in sterile fashion. A 21-Macedonian rigid cystoscope was used to gain access to the urethra and the bladder, which were then examined in systematic fashion. He has significant trilobar prostatic hypertrophy with a prominent median lobe, which corresponded to the mass seen on the CT scan. There was no evidence of mucosal lesions. He did have quite a few trabeculations. No significant diverticula and no bladder stones noted. We turned our attention to the right ureteral orifice, which was cannulated with a cone-tip 5-Macedonian ureteral catheter. Fifty percent diluted Omnipaque dye was instilled to perform retrograde pyelogram. It revealed delicate caliceal system without evidence of hydroureteronephrosis or filling defects. We then turned our attention to the left side and performed the same procedure. It also showed a delicate calyceal system without evidence of hydroureteronephrosis or filling defects. The bladder was then drained. The cystoscope was removed. He was extubated and taken to PACU for further recovery. ESTIMATED BLOOD LOSS: None. COMPLICATIONS: None. DISPOSITION: To PACU and back to the floor. After the surgery, when the patient had awakened, I discussed the findings with him. Given his lack of significant lower urinary tract symptoms and him not desiring to be on medical therapy, we elected to observe the median lobe. He does not need any followup with Urology unless he starts having problems with urinating in the future. cc: Cheo Darnell MD
[2018-09-29] MEDS: PROTONIX IV SCH (11:42)
[2018-09-29] MEDS: SODIUM CHLORIDE 0.9% INJ SCH (11:43)
--- NOTE | 2018-09-29 14:59 | PULMONOLOGY PROGRESS NOTE ---
DATE: 09/29/2018 SUBJECTIVE: Patient is awake, alert, and conversant. He reported some nausea this morning. He has not had any significant hemoptysis over the last 3 days. He did undergo a cystoscopy yesterday with findings consistent with extrinsic compression of the bladder due to an enlarged median lobe of the prostate. No follow-up needed per Dr. Darnell's note. OBJECTIVE: General: Patient is awake, alert, and conversant. He is without complaints. Vital signs: BP 134/76, heart rate 63, respiratory rate 16, oxygen saturation 98% on room air. HEENT: Pupils are equal and reactive. Oropharynx is clear. Neck: Supple. Chest: Reveals good air entry bilaterally without wheezing or rhonchi. Cardiac: S1, S2. Abdomen: Soft without hepatosplenomegaly. Extremities: Without edema. DIAGNOSTIC STUDIES: No new microbiology data. Retrograde pyelogram yesterday revealed normal ureters and renal collecting system. IMPRESSION: A 68-year-old with: 1. Chronic obstructive pulmonary disease (COPD). 2. Massive hemoptysis with blood originating from the right middle lobe. 3. Nonspecific pulmonary nodules. 4. Nonspecific mediastinal adenopathy. 5. Enlarged prostate as per above with negative cystoscopy. 6. Nonspecific changes in the adrenal gland. RECOMMENDATIONS: 1. The patient can be discharged from a pulmonary standpoint. He has no evidence of active pneumonia, and he does not need antibiotics from a pulmonary standpoint. 2. Discontinue tobacco use. 3. Discontinue aspirin use. 4. Recommend follow-up in my clinic. PET scan can be arranged as an outpatient. cc: Ed Machado MD
[2018-09-29 16:28] VITALS: BP 127/78
--- NOTE | 2018-09-29 18:14 | DISCHARGE SUMMARY ---
ADMISSION DATE: 09/23/2018 DISCHARGE DATE: 09/29/2018 DISCHARGE DIAGNOSES: 1. Right lower lobe pneumonia improved. 2. Epistaxis, resolved. 3. Hemoptysis, resolved. 4. Hypertension. 5. Chronic tobacco abuse. PROCEDURES: 1. Chest x-ray done on admission showed COPD, consolidation in the right middle lobe suspicious for pneumonia. 2. Chest CT showed right middle lobe pneumonia and lower lobe pneumonia with pulmonary nodules as described. There is also a renal mass measuring 3.2 x 2.6 cm. 3. Abdomen and pelvis CT showed suspicious prostate gland mass that projected into the urinary bladder with further investigation recommended but indeterminate adrenal gland mass of low suspicion. 4. Bronchoscopy performed by Dr. Ed Machado showed hemoptysis with evidence of recent bleeding from the right middle lobe due to a diffuse clot in the airway to both segments of the right middle lobe was clear this segment but there was no bleeding or tumor site identified. 5. Retrograde pyelogram showed no acute disease. 6. Cystoscopy with bilateral retrograde pyelograms showed no evidence of bladder tumor. The suspicious mass that was very pronounced was a median low which has grown into the bladder with unremarkable bilateral retrograde pyelograms. CONSULTATIONS: 1. Dr. Ed Machado from Pulmonary. 2. Dr. Darnell from Urology. HOSPITAL COURSE: This is a 68-year-old male who presented to the emergency department complaining initially of nosebleed but then we found out that he was coughing blood and considering that he is really heavy smoker, he was transferred from [facility] to [facility] for further evaluation by Pulmonary. We have done a CT of the thorax with results as above. We started treating pneumonia and clinically this patient was doing better. His oxygen needs started to get better. His x-ray actually reported good improvement in the infiltrates. At discharge he is going to continue with a few more days of antibiotics. The finding in the CT of the abdomen required to have a Urological consultation. We were not sure if that was a tumor of the bladder or not. In any case, the cystoscopy showed results as above. At this point the patient is stable and he is going to be seen as an outpatient by Dr. Machado. DISCHARGE PHYSICAL EXAMINATION: Vital signs: Temperature 97.4 degrees, heart rate 62, respiratory rate 16, blood pressure 127/78, O2 saturation 100% on room air. General: This is a chronically ill-appearing, 68-year-old male, lying in bed, in no acute distress, malnourished. HEENT: Head is normocephalic, atraumatic. Neck: No JVD noted. No carotid bruits. No lymphadenopathy. No thyromegaly. Cardiovascular: S1, S2 heard. No murmurs, gallops, or rubs. Regular rate and rhythm. Respiratory: Decreased breath sounds globally with minimal wheezing in both pulmonary bases. Patient is not using any accessory muscles or having work of breathing. Abdomen: Soft. Nontender to palpation. Bowel sounds present. No organomegaly. Extremities: No clubbing, cyanosis, or edema. Peripheral pulses present in both legs. Neurological: Patient is alert and oriented x3. Moves 4 extremities. DISCHARGE DISPOSITION: Home to self-care. FOLLOW UP: Follow up with Dr. Machado in 3 weeks. DISCHARGE MEDICATIONS: 1. Nicotine patch 21 mcg as directed. 2. Augmentin 875 mg 1 tablet p.o. every 12 hours for 10 days. 3. Tylenol 650 mg 1 tablet p.o. every 6 hours as needed for pain. cc: Cedric Donaldson MD MTDD
== END 2018-09-29 18:13 | disposition home or self-care (01) | DRG 194 ==
LOC: P.ED 15:47 → 3N 09-23 02:48 → SUATTDRO 09-23 02:48 → 3N 09-23 04:03
PROVIDERS: ATTEND Internal Medicine
CPT/HCPCS: 71020; 71046; 71260; 74177; 74420; 80048; 80053; 81001; 83605; 83735; 84153; 85025; 85027; 85576; 85610; 85730; 87015; 87040; 87070; 87102; 87116; 87147; 87205; 87206; 94761; 96365; 96367; 97110; 97162; 99285; A9270; C9113; G0103; J0171; J0456; J0696; J1100; J2020; J2405; J2543; J3010; J3370; J7050; Q9966; Q9967; S0164; XXXXX